=== PATIENT | female | born 1970 | race Caucasian/White ===

== ENCOUNTER 2018-09-11 12:32 | Outpatient (CLI) | payer BC | END 2018-09-11 12:33 | disposition home or self-care (01) | LOC: BICMAMMO 12:32 | PROVIDERS: ATTEND Family Medicine | DX: Z12.31 Encounter for screening mammogram for malignant neoplasm of breast (principal); R92.1 Mammographic calcification found on diagnostic imaging of breast; Z80.3 Family history of malignant neoplasm of breast | CPT/HCPCS: 77063; 77067 ==

== ENCOUNTER 2019-10-13 10:39 | Outpatient (CLI) | payer BC ==
--- NOTE | 2019-10-13 11:57 | MMO ---
Bilateral MAMMO Bilat Screen [facility]. CLINICAL HISTORY: Patient is 49 years old and is seen for screening. The patient has no personal history of cancer. The patient has a history of left Ultrasound Guided Core Biopsy in June, - benign and bilateral Breast reduction at age 38 - benign. VIEWS: The views performed were: bilateral craniocaudal with tomosynthesis and bilateral mediolateral oblique with tomosynthesis. FILMS COMPARED: The present examination has been compared to prior imaging studies performed at [facility] on 06/12/2011, 06/25/2011, 10/02/2012 and 09/11/2018. This study has been interpreted with the assistance of computer-aided detection. MAMMOGRAM FINDINGS: There are scattered fibroglandular densities. Finding 1: There are stable benign appearing calcifications seen in both breasts. Finding 2: There is a stable biopsy clip seen in the left breast. Finding 3: There is a round mass measuring 3 millimeters with circumscribed margins seen in the anterior lower-outer region of the right breast. IMPRESSION: FINDING 1: STABLE CALCIFICATIONS IN BOTH BREASTS ARE BENIGN. FINDING 2: STABLE BIOPSY CLIP IN THE LEFT BREAST IS BENIGN. FINDING 3: MASS IN THE RIGHT BREAST REQUIRES ADDITIONAL EVALUATION. ADDITIONAL PROJECTIONS (RIGHT CRANIOCAUDAL SPOT COMPRESSION; RIGHT MEDIOLATERAL OBLIQUE SPOT COMPRESSION; AND RIGHT MEDIOLATERAL) ARE RECOMMENDED. AN ULTRASOUND EXAM IS RECOMMENDED IF NEEDED. ADDITIONAL IMAGING. THE RESULTS OF THIS EXAM WERE SENT TO THE PATIENT. ACR BI-RADS Category 0 - Incomplete: Need additional imaging evaluation. [facility] will notify the patient of the need for additional imaging services. MAMMOGRAPHY NOTE: 1. A negative mammogram report should not delay a biopsy if a dominant of clinically suspicious mass is present. 2. Approximately 10% to 15% of breast cancers are not detected by mammography. 3. Adenosis and dense breasts may obscure an underlying neoplasm. Reported by: KRISTIAN VIVEROS MD Electonically Signed: [id number]
== END 2019-10-13 10:40 | disposition home or self-care (01) ==
LOC: BICMAMMO 10:39
PROVIDERS: ATTEND Family Medicine
DX: Z12.31 Encounter for screening mammogram for malignant neoplasm of breast (principal); R92.1 Mammographic calcification found on diagnostic imaging of breast; N63.10 Unspecified lump in the right breast, unspecified quadrant; Z91.89 Other specified personal risk factors, not elsewhere classified; Z98.890 Other specified postprocedural states
CPT/HCPCS: 77063; 77067

== ENCOUNTER 2019-10-16 08:32 | Outpatient (CLI) | payer BC ==
--- NOTE | 2019-10-16 09:25 | MMO ---
Right Breast MAMMO Unilat Diag [facility]. CLINICAL HISTORY: Patient is 49 years old and is seen for additional evaluation requested from prior study. The patient has the following family history of breast cancer: sister, at age 48, malignant (generic). The patient has no personal history of cancer. The patient has a history of left Ultrasound Guided Core Biopsy in June, - benign and bilateral Breast reduction at age 38 - benign. VIEWS: The views performed were: right craniocaudal spot compression with tomosynthesis; right mediolateral oblique spot compression with tomosynthesis; and right mediolateral with tomosynthesis. FILMS COMPARED: The present examination has been compared to prior imaging studies performed at [facility] on 10/02/2012, 09/11/2018, 10/13/2019 and 10/16/2019. This study has been interpreted with the assistance of computer-aided detection. MAMMOGRAM FINDINGS: There are scattered fibroglandular densities. Additional views were performed. Tiny nodule persists and corresponds to a probable complex cyst on US IMPRESSION: FINDING IN THE RIGHT BREAST IS PROBABLY BENIGN. FOLLOW-UP IN 6 MONTHS IS RECOMMENDED. THE RESULTS OF THIS EXAM WERE SENT TO THE PATIENT. ACR BI-RADS Category 3 - Probably benign finding - short interval follow-up suggested. [facility] will notify the patient of the need for additional imaging services. MAMMOGRAPHY NOTE: 1. A negative mammogram report should not delay a biopsy if a dominant of clinically suspicious mass is present. 2. Approximately 10% to 15% of breast cancers are not detected by mammography. 3. Adenosis and dense breasts may obscure an underlying neoplasm. Reported by: VICKI GAN MD Electonically Signed: [id number]
--- NOTE | 2019-10-16 11:04 | ULT ---
RIGHT BREAST ULTRASOUND: HISTORY: Abnormal mammogram. FINDINGS: Correlation is made with the mammograms of 10/13/2019 and today. Sonographic evaluation of the retroareolar aspect of the right breast demonstrates a 3 cm hypoechoic nodule at the 9 o'clock position with some posterior enhancement and internal echoes most likely repr esenting a complex cyst. This corresponds to the finding on the mammogram. IMPRESSION: BIRADS category 3 - probably benign findings. Six-month followup right diagnostic mammogram and ultr asound are recommended.
== END 2019-10-16 08:33 | disposition home or self-care (01) ==
LOC: BICMAMMO 08:32
PROVIDERS: ATTEND Family Medicine
DX: R92.8 Other abnormal and inconclusive findings on diagnostic imaging of breast (principal)
CPT/HCPCS: G0279

== ENCOUNTER 2020-05-02 08:17 | Outpatient (CLI) | payer OTHER ==
--- NOTE | 2020-05-02 09:13 | MMO ---
Right Breast MAMMO Unilat Diag [facility]. CLINICAL HISTORY: Patient is 50 years old and is seen for diagnostic exam. The patient has the following family history of breast cancer: sister, at age 48, malignant (generic). The patient has no personal history of cancer. The patient has a history of left Ultrasound Guided Core Biopsy in June, - benign and bilateral Breast reduction at age 38 - benign. VIEWS: The views performed were: right craniocaudal with tomosynthesis; right mediolateral oblique with tomosynthesis; and right mediolateral with tomosynthesis. FILMS COMPARED: The present examination has been compared to prior imaging studies performed at [facility] on 10/13/2019, 10/16/2019 and 05/02/2020. This study has been interpreted with the assistance of computer-aided detection. MAMMOGRAM FINDINGS: There are scattered fibroglandular densities. 3 mm cyst is stable. There are no suspicious masses, suspicious calcifications, or new areas of architectural distortion. IMPRESSION: THERE IS NO MAMMOGRAPHIC EVIDENCE OF MALIGNANCY. A ROUTINE FOLLOW-UP MAMMOGRAM IN 1 YEAR IS RECOMMENDED. THE RESULTS OF THIS EXAM WERE SENT TO THE PATIENT. ACR BI-RADS Category 2 - Benign finding MAMMOGRAPHY NOTE: 1. A negative mammogram report should not delay a biopsy if a dominant of clinically suspicious mass is present. 2. Approximately 10% to 15% of breast cancers are not detected by mammography. 3. Adenosis and dense breasts may obscure an underlying neoplasm. Reported by: KATHARINE BRYANT MD Electonically Signed: [id number]
--- NOTE | 2020-05-02 11:03 | ULT ---
ULTRASOUND RIGHT BREAST: INDICATION: Ultrasound right breast performed to followup a tiny hypoechoic nodule seen on diagnostic exam of 132 0. FINDINGS: Tiny hypoechoic cyst again seen at 9 o'clock measuring approximately 3 mm. No other suspicious find ing. This corresponds to a tiny nodule seen on mammography. Recommend patient return for routine bilateral breast exam in 6 months. Ultrasound findings are BIRADS 2, benign findings. Recommend 6-month bilateral mammograms for patien t to return to routine screening. POS: OFF
== END 2020-05-02 08:18 | disposition home or self-care (01) ==
LOC: BICMAMMO 08:17
PROVIDERS: ATTEND Family Medicine
DX: R92.8 Other abnormal and inconclusive findings on diagnostic imaging of breast (principal)
CPT/HCPCS: G0279

== ENCOUNTER 2020-10-12 13:35 | Outpatient (CLI) | payer OTHER | END 2020-10-12 13:36 | disposition home or self-care (01) | LOC: BICMAMMO 13:35 | PROVIDERS: ATTEND Family Medicine | DX: Z12.31 Encounter for screening mammogram for malignant neoplasm of breast (principal); Z80.3 Family history of malignant neoplasm of breast; Z91.89 Other specified personal risk factors, not elsewhere classified; Z98.82 Breast implant status | CPT/HCPCS: 77063; 77067 ==